=== PATIENT | male | born 1990 | race Hispanic/Latino ===

== ENCOUNTER 2017-05-18 20:34 | Emergency (ER) | payer OTHER ==
[2017-05-18] MEDS: NORCO 5/325MG TABLET (BULK FOR ED) PO (22:08)
== END 2017-05-18 22:12 | disposition home or self-care (01) ==
LOC: M ED 20:34
DX: S83.91XA Sprain of unspecified site of right knee, initial encounter (principal); X58.XXXA Exposure to other specified factors, initial encounter; Y92.89 Other specified places as the place of occurrence of the external cause; Y93.89 Activity, other specified; Y99.8 Other external cause status; Z98.890 Other specified postprocedural states
CPT/HCPCS: 73564

== ENCOUNTER → 2017-06-20 | Outpatient (CLI) | payer OTHER | LOC: M SLEEP 19:34 | DX: G47.30 Sleep apnea, unspecified (principal) ==

== ENCOUNTER 2017-07-24 03:02 | Emergency (ER) | payer OTHER ==
[2017-07-24] MEDS: GI COCKTAIL 50ML BTL(HYOSCYAMINE/MAALOX/LIDOCAINE VISCOUS)(1:3:1) PO (03:45)
[2017-07-24] MEDS: NS 1,000 ML IV (03:45)
[2017-07-24] MEDS: HYDROmorphone HCL 1 MG/ML SYRINGE (J1170) IV (03:45)
[2017-07-24 04:35] LABS: BASO # 0.1 10^3/uL (0.0-0.2); BASO % 0.4 % (0.0-1.0); EOS % 0.2 % (0.0-3.0); HEMATOCRIT 44.8 % (42.0-52.0); HEMOGLOBIN 15.6 g/dl (14.0-18.0); IMMATURE GRANULOCYTE % 0.6 % (0-3.0); LYMPH # 1.4 10^3/uL (1.5-6.5); MEAN CORPUSCULAR HEMOGLOBIN 29.1 pg (27.0-33.0); MEAN CORPUSCULAR HGB CONC 34.8 g/dl (32.0-36.5); MEAN CORPUSCULAR VOLUME 83.4 fl (80.0-96.0); MONO # 0.8 10^3/uL (0.0-0.8); MONO % 4.9 % (0.0-5.0); NEUTROPHILS # 13.6 10^3/uL (1.8-7.7); NEUTROPHILS % 84.9 % (36.0-66.0); PLATELET COUNT, AUTOMATED 363 10^3/uL (150-450); RED BLOOD COUNT 5.37 10^6/uL (4.30-6.10); RED CELL DISTRIBUTION WIDTH 12.2 % (11.5-14.5)
[2017-07-24 05:05] LABS: ALBUMIN 4.1 GM/DL (3.2-5.2); ALBUMIN/GLOBULIN RATIO 1.11 (1.00-1.93); ALKALINE PHOSPHATASE 97 U/L (45-117); ALT/SGPT 20 U/L (12-78); ANION GAP 11 MEQ/L (8-16); AST/SGOT 20 U/L (7-37); BILIRUBIN,DIRECT 0.1 MG/DL (0.0-0.2); BILIRUBIN,TOTAL 0.7 MG/DL (0.2-1.0); BLOOD UREA NITROGEN 17 MG/DL (7-18); CARBON DIOXIDE LEVEL 28 MEQ/L (21-32); CHLORIDE LEVEL 117 MEQ/L (98-107); CREATININE FOR GFR 0.94 MG/DL (0.70-1.30); GLOMERULAR FILTRATION RATE > 60.0 (>60); GLUCOSE, FASTING 123 MG/DL (70-100); LIPASE 93 U/L (73-393); SODIUM LEVEL 156 MEQ/L (136-145); TOTAL PROTEIN 7.8 GM/DL (6.4-8.2)
[2017-07-24] MEDS: PANTOPRAZOLE 40MG INJ (PROTONIX) (C9113) IV (05:30)
[2017-07-24] MEDS ORDERED: ISOVUE-370 76% 100ML VIAL (Q9967) As Ordered (05:35)
[2017-07-24] MEDS: ONDANSETRON 4 MG ORAL DISINTEGRATING TAB (S0181) PO (06:47)
== END 2017-07-24 06:40 | disposition home or self-care (01) ==
LOC: M ED 03:02
DX: K52.9 Noninfective gastroenteritis and colitis, unspecified (principal)
CPT/HCPCS: C9113

== ENCOUNTER 2017-07-30 19:38 | Emergency (ER) | payer OTHER | END 2017-07-30 19:48 | disposition left against medical advice (07) | LOC: M ED 19:38 | DX: Z53.29 Procedure and treatment not carried out because of patient's decision for other reasons (principal) ==